=== PATIENT | male | born 1985 | race Caucasian/White ===

== ENCOUNTER 2024-07-29 22:18 | Emergency (ER) | payer OTHER, SELFPAY ==
--- NOTE | ~2024-07-29 | CT_ITS ---
CT of the Abdomen and Pelvis: Indication: Abdominal pain Technique: 2.5 mm axial scans were obtained through the abdomen and pelvis following intravenous adm inistration of 100 cc of Omnipaque 350. Dose reduction technique was used on this scan by utilizing a utomated exposure control and iterative reconstruction technique. The dose-length product (DLP) was 3 42.88 mGy-cm. Findings: Scans through the lung bases are unremarkable. The liver, spleen, pancreas, gallbladder, adrenals and kidneys are within normal limits. No evidence of aortic aneurysm. No lymphadenopathy. No bowel obstruction or bowel wall thickening. There is no evidence to suggest acute appendicitis. Images through the pelvis were performed. Urinary bladder unremarkable. No pelvic mass seen. No ascit es. Impression: No significant abnormalities seen. Reviewed, dictated and finalized at [facility]. [employer] Impression: No significant abnormalities seen.
[2024-07-29 22:19] VITALS: BP 116/75; PULSE 97; RESP 12; TEMP 36.9; O2SAT 100
[2024-07-30 01:10] LABS: Basophils Absolute Auto 0.1 K/mm3 (0.0-0.1); Basophils Percent Auto 0.2 % (0.2-1.2); Eosinophils Percent Auto 0.1 % (0-4.4); Hematocrit 50.7 % (42.0-52.0); Immature Granulocyte Absolute 0.17 K/mm3 (0.00-0.031); Immature Granulocyte Percent A 0.7 % (0-0.5); Lymphocytes Absolute Auto 0.34 K/mm3 (0.9-3.2); Lymphocytes Percent Auto 1.4 % (18.3-44.2); Mean Corpuscular HGB Conc 33.5 g/dl (32-36); Mean Corpuscular Hemoglobin 30.2 pg (26-34); Mean Corpuscular Volume 90.1 fl (80-100); Monocytes Absolute Auto 1.2 K/mm3 (0.1-0.6); Monocytes Percent Auto 4.9 % (2.6-8.5); Neutrophils Absolute Auto 22.4 K/mm3 (1.3-6.7); Neutrophils Percent Auto 92.7 % (45.5-73.1); Platelet Count Result 193 k/mm3 (150-375); Red Blood Count 5.63 M/mm3 (4.6-6.20); White Blood Count 24.1 K/mm3 (4.5-10.0)
[2024-07-30] MEDS: ONDANSETRON INJ 4 MG/2 ML VIAL IV PUSH (01:21)
[2024-07-30] MEDS: SODIUM CHLORIDE 0.9% IV 1,000 ML 999 ML IV CONT ×2 (01:21→04:33)
[2024-07-30] MEDS: DICYCLOMINE HCL INJ 20 MG/2 ML VIAL IM (01:21)
[2024-07-30 01:25] LABS: Alanine Aminotransferase 206 U/L (6-50); Albumin Level 4.5 g/dL (3.5-5.1); Alkaline Phosphatase 60 U/L (38-126); Anion Gap 7 mmol/L (4-12); Aspartate Amino Transferase 79 U/L (17-59); Bilirubin,Total 1.1 mg/dL (0.2-1.3); Blood Urea Nitrogen 19 mg/dL (9-20); Calcium 8.5 mg/dL (8.4-10.2); Carbon Dioxide 23 mmol/L (22-30); Chloride 106 mmol/L (98-107); Estimated CRCL calculation 66 ml/min; Estimated Glomerular Filt Rate 52; Glucose 104 mg/dL (65-110); Lipase 295 U/L (23-300); Potassium 4.8 mmol/L (3.4-5.0); Sodium 136 mmol/L (137-145)
[2024-07-30 01:53] VITALS: BP 146/88; PULSE 88; RESP 16; O2SAT 99
--- NOTE | 2024-07-30 03:07 | PC.NURSE ---
Assumed care of pt from DESHAUN Denton at this time.
[2024-07-30 03:24] LABS: Add Urine Microscopic? NO; Appearance Urine Clear (Clear); Bilirubin Urine Negative (Negative); Blood Urine Negative (Negative); Color Urine Yellow (Yellow); Glucose Urine UA Negative (Negative); Ketones Urine 1+ mg/dL (Negative); Leukocyte Esterase Ur Negative LEU/UL (Negative); Nitrate Urine Negative (Negative); Protein Urine Negative (Negative); Specific Grav Ur > 1.045 (1.001-1.035); pH Urine 5.5 (5.0-9.0)
--- NOTE | 2024-07-30 05:22 | ED.GENADULT ---
HPI - General Adult General Chief complaint: Abdominal Pain Stated complaint: abdominal pain Time Seen by Provider: 07/30/24 00:34 History of Present Illness HPI narrative: Patient 39-year-old gentleman presents emergency department chief complaint of abdominal pain. Patient reports that he started having pain in the right lower quadrant reports that he has had nausea and vomiting and diarrhea patient reports pain is not improved by anything patient denies fever reports no prior surgical history Related Data Allergies Allergy/AdvReac Type Severity Reaction Status Date / Time No Known Allergies Allergy Verified 07/29/24 22:24 Review of Systems Review of Systems: A 10 system review of systems was completed on the patient and is negative except for what is stated in the HPI. Nursing and ancillary documentation was reviewed. [facility] Social History Social History Smoking status: Current every day smoker Alcohol intake: current Exam Narrative: GENERAL: Well-appearing, well-nourished, and in no acute distress. HEAD: Normocephalic, atraumatic. EYES: PERRLA and EOMI. ENT: Nares clear, no rhinorrhea or epistaxis. Mucous membranes moist. NECK: Supple. CHEST: Clear to auscultation. No respiratory distress. HEART: Regular rate and rhythm. No murmur heard. Normal peripheral pulses. ABDOMEN: Soft, nontender, nondistended, normal active bowel sounds. EXTREMITIES: Normal range of motion. No edema. SKIN: Warm, dry, no rash. NEURO: No focal deficits. Alert and oriented x3. PSYCH: Normal mood and affect. Course Vital Signs Vital signs: Vital Signs Temperature 36.9 C 07/29/24 22:19 Pulse Rate 97 07/29/24 22:19 Respiratory Rate 12 07/29/24 22:19 Blood Pressure 116/75 07/29/24 22:19 Pulse Oximetry 100 07/29/24 22:19 Oxygen Delivery Room Air 07/29/24 22:19 Temperature 36.9 C 07/29/24 22:19 Pulse Rate 88 07/30/24 01:53 Respiratory Rate 16 07/30/24 01:53 Blood Pressure 146/88 H 07/30/24 01:53 Pulse Oximetry 99 07/30/24 01:53 Oxygen Delivery Room Air 07/29/24 22:19 Medical Decision Making ANNIE Narrative Medical decision making narrative: Differential diagnosis includes gastroenteritis, colitis, diverticulitis, intra-abdominal infection, appendicitis laboratory studies were obtained showed white count [id number] the patient was also hemoconcentrated with hemoglobin of 17.0 electrolytes showed creatinine 1.5 AST and ALT were slightly elevated with a bilirubin of 1.1 lipase was normal at 295 urinalysis showed specific gravity of greater than 1.045 the patient received IV fluids in the emergency department. Antiemetics and Bentyl the patient is feeling much better CT scan of the abdomen pelvis showed Findings: Scans through the lung bases are unremarkable. The liver, spleen, pancreas, gallbladder, adrenals and kidneys are within normal limits. No evidence of aortic aneurysm. No lymphadenopathy. No bowel obstruction or bowel wall thickening. There is no evidence to suggest acute appendicitis. Images through the pelvis were performed. Urinary bladder unremarkable. No pelvic mass seen. No ascites. Impression: No significant abnormalities seen. patient be discharged home with a prescription for Bentyl Zofran and may take Imodium for diarrhea. Vital Signs Vital Signs: Vital Signs Temperature 36.9 C 07/29/24 22:19 Pulse Rate 97 07/29/24 22:19 Respiratory Rate 12 07/29/24 22:19 Blood Pressure 116/75 07/29/24 22:19 Pulse Oximetry 100 07/29/24 22:19 Oxygen Delivery Room Air 07/29/24 22:19 Temperature 36.9 C 07/29/24 22:19 Pulse Rate 88 07/30/24 01:53 Respiratory Rate 16 07/30/24 01:53 Blood Pressure 146/88 H 07/30/24 01:53 Pulse Oximetry 99 07/30/24 01:53 Oxygen Delivery Room Air 07/29/24 22:19 Lab Data 07/30/24 01:05 07/30/24 01:05 Labs: Lab Results 07/30/24 07/30/24 Range/Units 01:05 03:15 WBC 24.1 H (4.5-10.0) K/mm3 RBC 5.63 (4.6-6.20) M/mm3 Hgb 17.0 (14.0-18.0) g/dL Hct 50.7 (42.0-52.0) % MCV 90.1 (80-100) fl MCH 30.2 (26-34) pg MCHC 33.5 (32-36) g/dl RDW 14.0 (11.5-14.5) % Plt Count 193 (150-375) k/mm3 MPV 11.0 H (7.4-10.4) fl Immature Gran % (Auto) 0.7 H (0-0.5) % Neut % (Auto) 92.7 H (45.5-73.1) % Lymph % (Auto) 1.4 L (18.3-44.2) % Grant % (Auto) 4.9 (2.6-8.5) % Eos % (Auto) 0.1 (0-4.4) % Baso % (Auto) 0.2 (0.2-1.2) % Lymph # (Auto) 0.34 L (0.9-3.2) K/mm3 Grant # (Auto) 1.2 H (0.1-0.6) K/mm3 Eos # (Auto) 0.0 (0-0.3) K/mm3 Baso # (Auto) 0.1 (0.0-0.1) K/mm3 Abs Immat Gran (auto) 0.17 H (0.00-0.031) K/mm3 Absolute Neuts (auto) 22.4 H (1.3-6.7) K/mm3 Absolute Nucleated RBC 0.000 (0.0-0.012) K/mm3 Nucleated RBC % 0.0 (0.0-0.2) % Sodium 136 L (137-145) mmol/L Potassium 4.8 (3.4-5.0) mmol/L Chloride 106 (98-107) mmol/L Carbon Dioxide 23 (22-30) mmol/L Anion Gap 7 (4-12) mmol/L BUN 19 (9-20) mg/dL Creatinine 1.50 H (0.7-1.3) mg/dL Estim Creat Clear Calc 66 ml/min Estimated GFR 52 L (59 - ) Glucose 104 (65-110) mg/dL Calcium 8.5 (8.4-10.2) mg/dL Total Bilirubin 1.1 (0.2-1.3) mg/dL AST 79 H (17-59) U/L ALT 206 H (6-50) U/L Alkaline Phosphatase 60 (38-126) U/L Total Protein 7.0 (6.3-8.2) g/dL Albumin 4.5 (3.5-5.1) g/dL Lipase 295 (23-300) U/L Urine Color Yellow (Yellow) Urine Appearance Clear (Clear) Urine pH 5.5 (5.0-9.0) Ur Specific [place] > 1.045 H (1.001-1.035) Urine Protein Negative (Negative) mg/dL Urine Glucose (UA) Negative (Negative) mg/dL Urine Ketones 1+ H (Negative) mg/dL Ur Blood (Man) Negative (Negative) Urine Nitrate Negative (Negative) Urine Bilirubin Negative (Negative) Urine Urobilinogen 1.0 (<2.0) mg/dL Leukocyte Esterase Rfl Negative (Negative) STEVO/UL Discharge Plan Discharge Clinical Impression: Abdominal pain, Gastroenteritis Patient Disposition: Home, Self-Care Condition: Stable Instructions: Antibiotic Form, Dehydration (ED), Gastroenteritis (ED), Abdominal Pain (ED) Prescriptions: New dicyclomine 20 mg tablet 20 mg PO QID PRN (Reason: abdominal discomfort) Qty: 20 0RF ondansetron 4 mg tablet,disintegrating 4 mg PO Q8H PRN (Reason: nausea and vomiting) Qty: 10 0RF Follow-up/Referrals: Ty Mendes MD [Primary Care Provider] - Time of Disposition: 05:45
[2024-07-30 05:56] VITALS: BP 160/82; PULSE 78; RESP 16; O2SAT 100
== END 2024-07-30 06:23 | disposition home or self-care (01) ==
PROVIDERS: Physician Assistant; Emergency Provider Emergency Medicine; PCP Family Medicine
DX: K52.9 Noninfective gastroenteritis and colitis, unspecified (principal); F17.200 Nicotine dependence, unspecified, uncomplicated
CPT/HCPCS: 36415; 74177; 80053; 81003; 83690; 85025; 96361; 96372; 96374; 99284; J0500; J2405; J7030; Q9967